=== PATIENT | male | born 1950 | race Caucasian/White ===

== ENCOUNTER 2020-01-14 | Outpatient (CLI) | payer MEDICARE, OTHER, SELFPAY | END 2020-01-14 23:00 | disposition home or self-care (01) | LOC: GPT 02-18 12:32 | PROVIDERS: PCP Family Medicine; Referring Provider Family Medicine; Visit Provider Family Medicine | DX: Z46.89 Encounter for fitting and adjustment of other specified devices (principal); S22.000D Wedge compression fracture of unspecified thoracic vertebra, subsequent encounter for fracture with routine healing; X58.XXXD Exposure to other specified factors, subsequent encounter | CPT/HCPCS: 97760; L0456 ==

== ENCOUNTER → 2020-01-14 11:48 | Outpatient (BNVA) | payer MEDICARE, OTHER, SELFPAY | PROVIDERS: Family Provider Nurse Practitioner; PCP Family Medicine; Visit Provider Family Medicine | DX: S20.229A Contusion of unspecified back wall of thorax, initial encounter (principal); S22.000A Wedge compression fracture of unspecified thoracic vertebra, initial encounter for closed fracture; S20.221A Contusion of right back wall of thorax, initial encounter; M54.6 Pain in thoracic spine; S01.01XA Laceration without foreign body of scalp, initial encounter; M47.814 Spondylosis without myelopathy or radiculopathy, thoracic region; W07.XXXA Fall from chair, initial encounter | CPT/HCPCS: 72070 ==

== ENCOUNTER 2020-02-04 06:00 | Outpatient (RCR) | payer MEDICARE, OTHER, SELFPAY | END 2020-03-01 23:59 | disposition home or self-care (01) | LOC: GPT 06:00 | PROVIDERS: PCP Family Medicine; Referring Provider Family Medicine; Visit Provider Family Medicine | DX: Z47.89 Encounter for other orthopedic aftercare (principal); S22.000D Wedge compression fracture of unspecified thoracic vertebra, subsequent encounter for fracture with routine healing; X58.XXXD Exposure to other specified factors, subsequent encounter | CPT/HCPCS: 97110; 97112; 97161; 97530 ==

== ENCOUNTER 2020-03-02 06:00 | Outpatient (RCR) | payer MEDICARE, OTHER, SELFPAY | END 2020-03-31 23:59 | disposition home or self-care (01) | LOC: GPT 06:00 | PROVIDERS: PCP Family Medicine; Referring Provider Family Medicine; Visit Provider Family Medicine | DX: S22.000D Wedge compression fracture of unspecified thoracic vertebra, subsequent encounter for fracture with routine healing (principal); X58.XXXD Exposure to other specified factors, subsequent encounter | CPT/HCPCS: 97110; 97530 ==